=== PATIENT | male | born 1980 | race Caucasian/White ===

== ENCOUNTER 2020-06-20 08:20 | Emergency (ER) | payer BC ==
--- NOTE | 2020-06-20 08:47 | EDPHYS ---
Physician Documentation [facility] Name: Paddy Bassett Age: 40 yrs Sex: Male : 1980 Arrival Date: 06/20/2020 Time: 08:24 Bed 15 Private MD: ED Physician Tulio Guzman HPI: 06/20 08:49 This 40 yrs old Male presents to ER via Unassigned with complaints of Bumps kdr on Hand, Blisters on Feet. 08:49 The patient presents with pain, that is acute, swelling, tenderness. The complaints kdr affect the left foot, right foot. Context: The problem was sustained at home, resulted from an unknown cause, Appears to be a fungal infection with some secondary cellulitis. Onset: The symptoms/episode began/occurred gradually, at an unknown time. Modifying factors: The symptoms are alleviated by OTC meds, the symptoms are aggravated by Epson salt soak and movement. Associated signs and symptoms: The patient has no apparent associated signs or symptoms. Severity of symptoms: At their worst the symptoms were mild, moderate, just prior to arrival, in the emergency department the symptoms are unchanged. The patient has experienced similar episodes in the past, a few times. The patient has not recently seen a physician. The patient had been using OTC ointments to treat but when he missed a few doses, the pain and swelling worsened. Historical: - Allergies: 08:52 No Known Allergies; zb - Home Meds: 08:52 None [Active]; zb - PMHx: 08:52 None; zb - PSHx: 08:52 None; zb - Immunization history:: Adult Immunizations unknown. - Social history:: Smoking status: unknown. ROS: 08:49 MS/extremity: Positive for decreased range of motion, erythema, pain, swelling, kdr tenderness, of the right foot and left foot, Negative for abrasion, contusion, paresthesias. 08:49 Constitutional: Negative for fever, chills, and weight loss, Eyes: Negative for injury, pain, redness, and discharge, Neck: Negative for injury, pain, and swelling, Cardiovascular: Negative for chest pain, palpitations, and edema. Exam: 08:49 Constitutional: This is a well developed, well nourished patient who is awake, alert, kdr and in no acute distress. Head/Face: Normocephalic, atraumatic. Eyes: Pupils equal round and reactive to light, extra-ocular motions intact. Lids and lashes normal. Conjunctiva and sclera are non-icteric and not injected. Cornea within normal limits. Periorbital areas with no swelling, redness, or edema. Neck: Trachea midline, no thyromegaly or masses palpated, and no cervical lymphadenopathy. Supple, full range of motion without nuchal rigidity, or vertebral point tenderness. No Meningismus. 08:49 Skin: Appearance: normal except for affected area, cellulitis, that is mild, irregular, patchy, on the right foot and left foot, induration, that is mild is noted, located on the right foot and left foot, rash a moderate rash is noted, rash can be described as erythematous, excoriated. Vital Signs: 08:46 BP 128 / 78; Pulse 80; Resp 16; Temp 98.3; Pulse Ox 99% on R/A; Weight 163.29 kg; zb Height 6 ft. 3 in. (190.50 cm); 08:46 Body Mass Index 45.00 (163.29 kg, 190.50 cm) zb MDM: 08:46 Patient medically screened. kdr 08:49 Data reviewed: vital signs, nurses notes. Counseling: I had a detailed discussion with kdr the patient and/or guardian regarding: the historical points, exam findings, and any diagnostic results supporting the discharge/admit diagnosis, the need for outpatient follow up. Administered Medications: No medications were administered Disposition: 06/20/20 08:46 Discharged to Home. Impression: Fungal and Cellulitis infection to both feet. Dellullitis to right hand (ant bites). - Condition is Stable. - Discharge Instructions: Fungal Nail Infection, Cellulitis, Adult, [id number]. - Prescriptions for Keflex 500 mg Oral Capsule - take 1 capsule by ORAL route every 6 hours for 10 days; 40 capsule. Nystatin- Triamcinolone 100,000-0.1 unit/g-% Topical Cream - apply 1 application by TOPICAL route 2 times per day; 2 tube. - Medication Reconciliation Form, Thank You Letter, Antibiotic Education form. - Follow up: Private Physician; When: 2 - 3 days; Reason: If symptoms return, Further diagnostic work-up, Recheck today's complaints, Continuance of care, Re-evaluation by your physician. - Problem is new. - Symptoms are unchanged. Signatures: Tulio Guzman MD MD kdr Brown, Zipporah, RN RN zb Corrections: (The following items were deleted from the chart) 09:03 08:46 06/20/2020 08:46 Discharged to Home. Impression: Fungal and Cellulitis infection zb to both feet. Dellullitis to right hand (ant bites). Condition is Stable. Forms are Medication Reconciliation Form, Thank You Letter, Antibiotic Education, Prescription Opioid Use. Follow up: Private Physician; When: 2 - 3 days; Reason: If symptoms return, Further diagnostic work-up, Recheck today's complaints, Continuance of care, Re-evaluation by your physician. Problem is new. Symptoms are unchanged. kdr
--- NOTE | 2020-06-20 09:03 | ER ---
Nurse's Notes [facility] Name: Paddy Bassett Age: 40 yrs Sex: Male : 1980 Arrival Date: 06/20/2020 Time: 08:24 Bed 15 Private MD: Diagnosis: Fungal and Cellulitis infection to both feet. Dellullitis to right hand (ant bites) Presentation: 06/20 08:46 Chief complaint: Patient states: ant bites on right hand and bilateral are swollen with zb blisters since last Wednesday. Coronavirus screen: At this time, the client does not indicate any symptoms associated with coronavirus-19. Ebola Screen: No symptoms or risks identified at this time. Initial Sepsis Screen: Does the patient meet any 2 criteria? No. Patient's initial sepsis screen is negative. Initial Sepsis Screen: Does the patient have a suspected source of infection? No. Patient's initial sepsis screen is negative. Risk Assessment: Do you want to hurt yourself or someone else? Patient reports no desire to harm self or others. Onset of symptoms was June 15, 2020. 08:46 Method Of Arrival: Ambulatory zb 08:46 Acuity: NEIL 4 zb Triage Assessment: 08:52 General: Appears in no apparent distress. uncomfortable, Behavior is calm, cooperative, zb appropriate for age. Pain: Complains of pain in right foot and left foot Pain does not radiate. Pain currently is 0 out of 10 on a pain scale. at worst was 10 out of 10 on a pain scale. Pain began a week ago. EENT: No signs and/or symptoms were reported regarding the EENT system. Neuro: Level of Consciousness is awake, alert, obeys commands, Oriented to person, place, time, situation. Cardiovascular: Capillary refill < 3 seconds in bilateral fingers. Respiratory: Airway is patent Trachea midline Respiratory effort is even, unlabored, Respiratory pattern is regular. GI: No signs and/or symptoms were reported involving the gastrointestinal system. : No signs and/or symptoms were reported regarding the genitourinary system. Derm: Skin has blisters on bilateral soles of feet. Musculoskeletal: Circulation, motion, and sensation intact. Historical: - Allergies: 08:52 No Known Allergies; zb - Home Meds: 08:52 None [Active]; zb - PMHx: 08:52 None; zb - PSHx: 08:52 None; zb - Immunization history:: Adult Immunizations unknown. - Social history:: Smoking status: unknown. Screenin:51 Abuse screen: Denies threats or abuse. Denies injuries from another. Nutritional zb screening: No deficits noted. Tuberculosis screening: No symptoms or risk factors identified. Fall Risk None identified. No fall in past 12 months (0 pts). No secondary diagnosis (0 pts). No IV (0 pts). Ambulatory Aid- None/Bed Rest/Nurse Assist (0 pts). Gait- Normal/Bed Rest/Wheelchair (0 pts) Mental Status- Oriented to own ability (0 pts). Total Mattson Fall Scale indicates No Risk (0-24 pts). Vital Signs: 08:46 BP 128 / 78; Pulse 80; Resp 16; Temp 98.3; Pulse Ox 99% on R/A; Weight 163.29 kg; zb Height 6 ft. 3 in. (190.50 cm); 08:46 Body Mass Index 45.00 (163.29 kg, 190.50 cm) zb ED Course: 08:24 Patient arrived in ED. rg4 08:32 Cheryl Arauz, ARNALDO is Primary Nurse. zb 08:36 Tulio Guzman MD is Attending Physician. kdr 08:51 Triage completed. zb 08:55 Arm band placed on right wrist. zb 08:55 Patient has correct armband on for positive identification. Bed in low position. Call zb light in reach. Door closed. Noise minimized. 09:01 No provider procedures requiring assistance completed. Patient did not have IV access zb during this emergency room visit. Administered Medications: No medications were administered Outcome: 08:46 Discharge ordered by . kdr 09:02 Discharged to home ambulatory, with family. zb 09:02 Condition: good 09:02 Discharge instructions given to patient, Instructed on discharge instructions, follow up and referral plans. medication usage, Demonstrated understanding of instructions, follow-up care, medications, Prescriptions given X 2. 09:03 Patient left the ED. zb Signatures: Tulio Guzman MD MD kdr Garcia, Rubi rg4 Cheryl Arauz RN RN zb
[2020-06-20 09:36] VITALS: BP 128/78; TEMP 98.3; O2SAT 99
== END 2020-06-20 09:03 | disposition home or self-care (01) ==
LOC: ER 08:20
DX: L03.113 Cellulitis of right upper limb (principal); L03.116 Cellulitis of left lower limb; L03.115 Cellulitis of right lower limb; B35.3 Tinea pedis
CPT/HCPCS: 99282

== ENCOUNTER 2020-12-26 13:48 | Emergency (ER) | payer BC ==
[2020-12-26] MEDS ORDERED: MORPHINE 4 MG/ML SYR ONE (19:40)
[2020-12-26] MEDS ORDERED: ONDANSETRON 4 MG/2 ML VIAL ONE (19:40)
[2020-12-26] MEDS ORDERED: NA CHLORIDE 0.9% 1,000 ML ONE (19:40)
[2020-12-26 20:00] LABS: Absolute Lymphocytes (CBC) 1.7 K/uL (0.7-4.9); Basophils % 0.6 % (0-1.3); Hematocrit 45.7 % (39.6-49.0); Lymphocytes % 10.1 % (15.3-44.8); MPV 9.4 fL (7.6-11.3); RBC Red Blood Cell Count 5.25 M/uL (4.33-5.43)
[2020-12-26 20:02] LABS: Albumin 3.4 g/dL (3.4-5.0); Bilirubin Direct 0.1 mg/dL (0-0.2); Bilirubin Total 0.5 mg/dL (0.2-1.0); Potassium 4.4 mmol/L (3.5-5.1)
--- NOTE | 2020-12-26 20:58 | RAD REPORT ---
EXAM DESCRIPTION: CT - Abdomen Pelvis W Contrast - 12/26/2020 8:45 pm CLINICAL HISTORY: ABD PAIN COMPARISON: No comparisons TECHNIQUE: Biphasic, helical CT imaging of the abdomen and pelvis was performed following 100 ml non -ionic IV contrast. No oral contrast administered. All CT scans are performed using dose optimization technique as appropriate and may include automated exposure control or mA/KV adjustment according to patient size. FINDINGS: No suspicious findings in the lung bases. The liver, spleen, and pancreas show no suspicious findings. Liver does show diffuse fatty infiltrati on. No portal vein abnormality. Gallbladder and biliary tree show no suspicious findings. Symmetric renal function is seen with no hydronephrosis or suspicious renal mass. No pyelonephritis o r acute parenchymal process. No bladder abnormalities. No adrenal abnormalities. No stomach or small bowel abnormality seen. Appendix is normal. Colon is mostly decompressed. No foca l colon process identifiable. No free air, free fluid or inflammatory stranding. No hernia, mass or bulky lymphadenopathy. No suspicious bony findings. IMPRESSION: Contrast enhanced CT abdomen and pelvis showing no acute or emergent finding.
--- NOTE | 2020-12-26 21:03 | ER ---
Nurse's Notes [facility] Name: Paddy Bassett Age: 40 yrs Sex: Male : 1980 Arrival Date: 12/26/2020 Time: 13:53 Bed 14 Private MD: Diagnosis: Generalized abdominal pain;Diarrhea, unspecified;Elevated white blood cell count Presentation: 12/26 14:25 Chief complaint: Patient states: Abdominal pain since Wednesday with diarrhea. No known ll1 fever. Coronavirus screen: Client denies travel out of the [place] in the last 14 days. Coronavirus screen: diarrhea, difficulty breathing, fatigue, shortness of breath, Client presents with at least one sign or symptom that may indicate coronavirus-19. Standard/surgical mask placed on the client. Ebola Screen: Patient denies travel to an Ebola-affected area in the 21 days before illness onset. Initial Sepsis Screen: Does the patient meet any 2 criteria? No. Patient's initial sepsis screen is negative. Does the patient have a suspected source of infection? Yes: Acute abdominal pain. Risk Assessment: Do you want to hurt yourself or someone else? Patient reports no desire to harm self or others. Onset of symptoms was December 23, 2020. 14:25 Method Of Arrival: Ambulatory ll1 14:25 Acuity: NEIL 3 ll1 Historical: - Allergies: 14:26 No Known Allergies; ll1 - PMHx: 14:26 None; ll1 - PSHx: 14:26 knee SX; ll1 - Immunization history:: Flu vaccine is not up to date. - Social history:: Smoking status: Patient reports the use of cigarette tobacco products, smokes one pack cigarettes per day. Screenin:15 Abuse screen: Denies threats or abuse. Denies injuries from another. Nutritional aj1 screening: No deficits noted. Tuberculosis screening: No symptoms or risk factors identified. Assessment: 18:15 General: Appears in no apparent distress. uncomfortable, Behavior is calm, cooperative, aj1 appropriate for age. Pain: Complains of pain in abdomen Pain does not radiate. Pain currently is 8 out of 10 on a pain scale. Quality of pain is described as aching. Neuro: Level of Consciousness is awake, alert, obeys commands, Oriented to person, place, time, situation. Cardiovascular: Patient's skin is warm and dry. Respiratory: Airway is patent Respiratory effort is even, unlabored, Respiratory pattern is regular, symmetrical. GI: Abdomen is round Bowel sounds present X 4 quads. Abd is soft X 4 quads Abdomen is tender to palpation X 4 quads. Reports lower abdominal pain, upper abdominal pain, diarrhea, nausea, Patient currently denies vomiting. : No signs and/or symptoms were reported regarding the genitourinary system. EENT: No signs and/or symptoms were reported regarding the EENT system. Derm: No signs and/or symptoms reported regarding the dermatologic system. Skin is pink, warm \T\ dry. normal. Musculoskeletal: No signs and/or symptoms reported regarding the musculoskeletal system. Circulation, motion, and sensation intact. 19:34 Reassessment: Patient and/or family updated on plan of care and expected duration. Pain ea level reassessed. Patient is alert, oriented x 3, equal unlabored respirations, skin warm/dry/pink. 20:20 Reassessment: Patient and/or family updated on plan of care and expected duration. Pain ea level reassessed. Patient is alert, oriented x 3, equal unlabored respirations, skin warm/dry/pink. Patient states symptoms have improved. 20:56 Reassessment: Patient and/or family updated on plan of care and expected duration. Pain ea level reassessed. Patient is alert, oriented x 3, equal unlabored respirations, skin warm/dry/pink. Returned from CT. 21:21 Reassessment: Patient and/or family updated on plan of care and expected duration. Pain ea level reassessed. Patient is alert, oriented x 3, equal unlabored respirations, skin warm/dry/pink. Discharge instruction given to patient verbalized the understanding of instruction. Pt left ED ambulatory accompanied by family. Vital Signs: 14:25 BP 145 / 81; Pulse 89; Resp 18; Temp 99.2; Pulse Ox 98% ; Weight 158.76 kg; Height 6 ll1 ft. 4 in. (193.04 cm); Pain 10/10; 18:15 BP 103 / 61; Pulse 83; Resp 18; Pulse Ox 97% on R/A; aj1 20:20 BP 143 / 73; Pulse 88; Resp 19; Pulse Ox 95% on R/A; ea 21:22 BP 140 / 68; Pulse 78; Resp 18; Pulse Ox 96% ; ea 14:25 Body Mass Index 42.60 (158.76 kg, 193.04 cm) ll1 ED Course: 13:53 Patient arrived in ED. mr 14:26 Triage completed. ll1 18:06 Eulalia Murdock FNP-C [facility]. kb 18:06 Davie Bernal MD is Attending Physician. kb 18:09 Viri Hubbard, ARNALDO is Primary Nurse. aj1 18:09 Arm band placed on Patient placed in an exam room, on a stretcher. ll1 18:15 Patient has correct armband on for positive identification. aj1 18:15 No provider procedures requiring assistance completed. aj1 19:34 Inserted saline lock: 20 gauge in right antecubital area, using aseptic technique. ea Blood collected. 20:45 CT Abd/Pelvis - IV Contrast Only In Process Unspecified. EDMS 21:23 IV discontinued, intact, bleeding controlled, No redness/swelling at site. Pressure ea dressing applied. Administered Medications: 19:35 Drug: Zofran (Ondansetron) 4 mg Route: IVP; Site: right antecubital; ea 20:21 Follow up: Response: No adverse reaction ea 19:35 Drug: morphine 4 mg Route: IVP; Site: right antecubital; ea 20:21 Follow up: Response: No adverse reaction; Pain is decreased ea 19:36 Drug: NS 0.9% 1000 ml Route: IV; Rate: 1000 ml; Site: right antecubital; ea 21:00 Follow up: Response: No adverse reaction; IV Status: Completed infusion; IV Intake: ea 1000ml 21:20 Drug: Cipro (ciprofloxacin) 500 mg Route: PO; ea 21:21 Follow up: Response: Medication administered at discharge. ea 21:20 Drug: Flagyl (metroNIDAZOLE) 500 mg Route: PO; ea 21:20 Follow up: Response: Medication administered at discharge. ea Intake: 21:00 IV: 1000ml; Total: 1000ml. ea Outcome: 21:02 Discharge ordered by . kb 21:22 Discharged to home ambulatory, with family. ea 21:22 Condition: stable 21:22 Discharge instructions given to patient, Instructed on discharge instructions, follow up and referral plans. medication usage, Demonstrated understanding of instructions, follow-up care, medications, Prescriptions given X 4. 21:23 Patient left the ED. ea Signatures: Dispatcher [employer] Eulalia Correia, PEST CONTROL SERVICE REPRESENTATIVE-C PEST CONTROL SERVICE REPRESENTATIVE-CkViri Meehan RN RN aj1 Mckinney Palma mr Zaira Villareal RN Yoli Reyes ea, RN RN ll1 Corrections: (The following items were deleted from the chart) 18:09 14:26 Arm band placed on Patient placed in an exam room, on a stretcher, ll1 ll1
--- NOTE | 2020-12-26 21:03 | EDPHYS ---
Physician Documentation [facility] Name: Paddy Bassett Age: 40 yrs Sex: Male : 1980 Arrival Date: 12/26/2020 Time: 13:53 Bed 14 Private MD: ED Physician Davie Bernal HPI: 12/26 21:59 This 40 yrs old Male presents to ER via Ambulatory with complaints of kb Abdominal Pain, Diarrhea. 21:59 The patient presents with abdominal pain. Severity of pain: At its worst the pain was kb moderate in the emergency department the pain is unchanged. The patient has not experienced similar symptoms in the past. The patient has not recently seen a physician. 22:00 Onset: The symptoms/episode began/occurred 4 day(s) ago. The symptoms do not radiate. kb Associated signs and symptoms: Pertinent positives: diarrhea, nausea, Pertinent negatives: fever. The symptoms are described as constant. Modifying factors: The symptoms are alleviated by nothing, the symptoms are aggravated by nothing. Pt reports abd pain and diarrhea for 4 days. . Historical: - Allergies: 14:26 No Known Allergies; ll1 - PMHx: 14:26 None; ll1 - PSHx: 14:26 knee SX; ll1 - Immunization history:: Flu vaccine is not up to date. - Social history:: Smoking status: Patient reports the use of cigarette tobacco products, smokes one pack cigarettes per day. ROS: 21:57 Constitutional: Negative for fever, chills, and weight loss. kb 21:57 Abdomen/GI: Positive for abdominal pain, nausea, diarrhea, Negative for vomiting. 21:57 All other systems are negative. Exam: 21:57 Constitutional: This is a well developed, well nourished patient who is awake, alert, kb and in no acute distress. Head/Face: Normocephalic, atraumatic. Cardiovascular: Regular rate and rhythm with a normal S1 and S2. No gallops, murmurs, or rubs. No pulse deficits. Respiratory: Respirations even and unlabored. No increased work of breathing, no retractions or nasal flaring. Skin: Warm, dry with normal turgor. Normal color. MS/ Extremity: Pulses equal, no cyanosis. Neurovascular intact. Full, normal range of motion. Neuro: Awake and alert, GCS 15, oriented to person, place, time, and situation. Moves all extremities. Normal gait. Psych: Awake, alert, with orientation to person, place and time. Behavior, mood, and affect are within normal limits. 21:57 Abdomen/GI: Inspection: obese Bowel sounds: normal, Palpation: soft, in all quadrants, mild abdominal tenderness, in all quadrants. Vital Signs: 14:25 BP 145 / 81; Pulse 89; Resp 18; Temp 99.2; Pulse Ox 98% ; Weight 158.76 kg; Height 6 ll1 ft. 4 in. (193.04 cm); Pain 10/10; 18:15 BP 103 / 61; Pulse 83; Resp 18; Pulse Ox 97% on R/A; aj1 20:20 BP 143 / 73; Pulse 88; Resp 19; Pulse Ox 95% on R/A; ea 21:22 BP 140 / 68; Pulse 78; Resp 18; Pulse Ox 96% ; ea 14:25 Body Mass Index 42.60 (158.76 kg, 193.04 cm) ll1 MDM: 18:08 Patient medically screened. kb 21:01 Data reviewed: vital signs, nurses notes. Data interpreted: Pulse oximetry: on room air kb is 95 %. Interpretation: normal. Counseling: I had a detailed discussion with the patient and/or guardian regarding: the historical points, exam findings, and any diagnostic results supporting the discharge/admit diagnosis, lab results, radiology results, the need for outpatient follow up, a family practitioner, to return to the emergency department if symptoms worsen or persist or if there are any questions or concerns that arise at home. 12/26 18:14 Order name: Basic Metabolic Panel kb 12/26 18:14 Order name: CBC with Diff kb 12/26 18:14 Order name: Hepatic Function; Complete Time: 20:03 kb 12/26 18:14 Order name: Lipase; Complete Time: 20:03 kb 12/26 18:14 Order name: Basic Metabolic Panel; Complete Time: 20:03 EDMS 12/26 18:14 Order name: CBC with Automated Diff; Complete Time: 21:09 EDMS 12/26 18:14 Order name: IV Saline Lock; Complete Time: 19:36 kb 12/26 18:14 Order name: CT Abd/Pelvis - IV Contrast Only; Complete Time: 21:01 kb 12/26 20:28 Order name: CBC Smear Scan; Complete Time: 21:09 [facility] 12/26 18:14 Order name: Labs collected and sent; Complete Time: 19:36 kb Administered Medications: 19:35 Drug: Zofran (Ondansetron) 4 mg Route: IVP; Site: right antecubital; ea 20:21 Follow up: Response: No adverse reaction ea 19:35 Drug: morphine 4 mg Route: IVP; Site: right antecubital; ea 20:21 Follow up: Response: No adverse reaction; Pain is decreased ea 19:36 Drug: NS 0.9% 1000 ml Route: IV; Rate: 1000 ml; Site: right antecubital; ea 21:00 Follow up: Response: No adverse reaction; IV Status: Completed infusion; IV Intake: ea 1000ml 21:20 Drug: Cipro (ciprofloxacin) 500 mg Route: PO; ea 21:21 Follow up: Response: Medication administered at discharge. ea 21:20 Drug: Flagyl (metroNIDAZOLE) 500 mg Route: PO; ea 21:20 Follow up: Response: Medication administered at discharge. ea Disposition: 12/26/20 21:02 Discharged to Home. Impression: Generalized abdominal pain, Diarrhea, unspecified, Elevated white blood cell count. - Condition is Stable. - Discharge Instructions: Food Choices to Help Relieve Diarrhea, Adult, Abdominal Pain, Adult, [id number], Diarrhea, Adult, [id number]. - Prescriptions for Bentyl 20 mg Oral Tablet - take 1 tablet by ORAL route every 6 hours As needed; 20 tablet. Cipro 500 mg Oral Tablet - take 1 tablet by ORAL route every 12 hours for 10 days; 20 tablet. Flagyl 500 mg Oral Tablet - take 1 tablet by ORAL route every 8 hours for 10 days; 30 tablet. Zofran 4 mg Oral Tablet - take 1 tablet by ORAL route every 6 hours As needed; 20 tablet. - Work release form, Medication Reconciliation Form, Thank You Letter, Antibiotic Education, Prescription Opioid Use form. - Follow up: Emergency Department; When: As needed; Reason: Worsening of condition. Follow up: Private Physician; When: 2 - 3 days; Reason: Recheck today's complaints, Continuance of care, Re-evaluation by your physician. Addendum: 12/31/2020 07:04 Co-signature as Attending Physician, Davie abad n Signatures: Dispatcher [employer] [facility] Eulalia Murdock, GLOVE CLEANER-C GLOVE CLEANER-Ckb Davie Bernal MD MD rn Antunez, Elena RN Yoli Reyes ea RN RN ll1 Corrections: (The following items were deleted from the chart) 12/26 21:23 21:02 12/26/2020 21:02 Discharged to Home. Impression: Generalized abdominal pain; ea Diarrhea, unspecified; Elevated white blood cell count. Condition is Stable. Forms are Medication Reconciliation Form, Thank You Letter, Antibiotic Education, Prescription Opioid Use. Follow up: Emergency Department; When: As needed; Reason: Worsening of condition. Follow up: Private Physician; When: 2 - 3 days; Reason: Recheck today's complaints, Continuance of care, Re-evaluation by your physician. kb
[2020-12-26 21:08] LABS: Platelet Estimate ADEQ; White Blood Cell Scan OK (OK)
[2020-12-26 21:09] LABS: Blood Morphology Comment NOT SEEN (NOT SEEN)
[2020-12-26] MEDS ORDERED: CIPROFLOXACIN HCL 500 MG TAB ONE (21:32)
[2020-12-26] MEDS ORDERED: metroNIDAZOLE 500 MG TABLET ONE (21:32)
[2020-12-26 21:38] VITALS: TEMP 99.2
[2020-12-26 21:43] VITALS: BP 140/68; O2SAT 96
== END 2020-12-26 21:23 | disposition home or self-care (01) ==
LOC: ER 13:48
DX: D72.829 Elevated white blood cell count, unspecified (principal); R19.7 Diarrhea, unspecified; F17.210 Nicotine dependence, cigarettes, uncomplicated
CPT/HCPCS: 96361; 85025; 80048; 36415; 80076; 83690; 74177; 96375; 96374; 99284; Q9967; J7030; J2405

== ENCOUNTER 2024-10-02 18:15 | Emergency (ER) | payer BC ==
--- NOTE | 2024-10-02 18:57 | ER ---
Nurse's Notes [facility] Name: Paddy Bassett Age: 44 yrs Sex: Male : 1980 Arrival Date: 10/02/2024 Time: 18:15 Bed Waiting Private MD: Diagnosis: Eloped Presentation: 10/02 18:35 Note called from [facility], patient did not respond. ap3 18:59 Note called from [facility], patient did not respond. ap3 ED Course: 18:21 Patient arrived in ED. mr 18:23 Jimy Mills MD is Attending Physician. ec2 19:04 Joelle Mckeon RN is Primary Nurse. ap3 19:06 Joelle Mckeon RN is Primary Nurse. ap3 Administered Medications: No medications were administered Outcome: 19:06 Patient left the ED. ap3 Signatures: Palma Mckinney, Reg Reg mr Joelle Mckeon RN RN ap3 Jimy Mills MD MD ec2
--- NOTE | 2024-10-02 18:58 | EDPHYS ---
Physician Documentation [facility] Name: Paddy Bassett Age: 44 yrs Sex: Male : 1980 Arrival Date: 10/02/2024 Time: 18:15 Bed Waiting Private MD: ANGELICA Physician MDM: 10/02 18:57 Medical screening is not applicable. ec2 Administered Medications: No medications were administered Disposition Summary: 10/02/24 18:57 Eloped Notes: Disposition: before being seen by provider ec2 Reason: unknown ec2 Diagnosis - Eloped ec2 Followup: ec2 - With: Private Physician - When: - Reason: Recheck today's complaints Signatures: Jimy Mills MD MD ec2
== END 2024-10-02 19:06 | disposition left against medical advice (07) ==
LOC: ER 18:15
DX: Z02.9 Encounter for administrative examinations, unspecified (principal)